=== PATIENT | female | born 1955 | race Native Hawaiian/Other Pacific Islander ===

== ENCOUNTER → 2016-07-06 | Outpatient (CLI) | payer OTHER ==
[~2016-07-06] MED LIST: DELESTROGE10 MG/1 ML IM; ESTRACE0.5 MG PO; LEVOTHYROXINE0.05 MG PO; MULTIVITAMINS; NORCO 5-325 TA1 EACH PO
== END ==
LOC: RAD 14:43
DX: M25.572 Pain in left ankle and joints of left foot (principal)

== ENCOUNTER → 2016-07-08 | Outpatient (CLI) | payer OTHER ==
[~2016-07-08] VITALS: Ht 172.7 cm; Wt 68.0 kg
--- NOTE | ~2016-07-08 | P ---
[facility] [place] [address] [place] [address] PROCEDURE REPORT Name: LISSETTE BOOKER Room #: REG [facility].#: [id number] Admission: 07/08/16 Attend Phys: Remington Booker MD, FAAF Discharge: Date of : 57 Report #: [id number] THIS REPORT FOR: //name// CC: Remington Booker MD DATE OF SERVICE: 07/08/2016 PROCEDURE: Colonoscopy with biopsies. INDICATION FOR PROCEDURE: Evaluate right upper quadrant pain and bilateral lower abdominal pain. DESCRIPTION OF PROCEDURE: Informed consent for this procedure was obtained prior to the administration of any medication. The risks of the procedure which include bleeding, perforation, infection, complications of sedation and the possibility I could miss something have been explained to the patient and she has indicated her consent by signing. Propofol was slowly titrated before and during this procedure for patient comfort by the anesthesia service. The Habbitsinon colonoscope was introduced through the anal sphincter and advanced under direct visualization to the terminal ileum. Findings are noted on withdrawal of the scope. The terminal ileal mucosa appears normal. Cecum, normal mucosa. In the proximal ascending colon, there was a 3 mm sessile polyp removed in toto with regular biopsy forceps and sent to pathology lab. Good hemostasis was noted after that polypectomy. In the mid to distal ascending colon, there is a thickened fold as wide as possibly 1 cm in area. Retroflex view shows the picture of this polyp much better. I did biopsy it multiple times for histopathology and I also injected the area with 3 mL of Fariba ink just in case we need to find it back again for any reason. The remaining ascending colonic mucosa appears normal. Hepatic flexure, normal mucosa. Transverse colon, normal mucosa. Splenic flexure, normal mucosa. Descending colon, normal mucosa. Sigmoid colon, normal mucosa. Rectum, normal mucosa. Retroflex view did not reveal any abnormalities. Scope was withdrawn. The patient went to the recovery area in stable condition. She tolerated the procedure well. IMPRESSION: 1. Colon polyp removed in proximal ascending as above. 2. Thickened folds. Biopsies as above and tattooed as above. Recommendations are to await the path report. I do not think the findings on this colonoscopy or the EGD necessarily explained the patient's discomfort in the right upper quadrant. The etiology of that remains unclear and perhaps CT scan of the abdomen and pelvis needs to be done. I would like for her to take proton pump inhibitors for a while until we get [facility] [address] [place] [address] PROCEDURE REPORT Name: LISSETTE BOOKER Room #: REG [facility] Tyson#: [id number] Admission: 07/08/16 Attend Phys: Remington Booker MD, FAAF Discharge: Date of : 57 Report #: [id number] this pain under control. Thank you very much once again for allowing me to participate in her care, Dr. Booker. <ELECTRONICALLY SIGNED> By: Teresa Camejo DO 07/08/16 1853 1423 1844 Teresa Camejo DO /nt
--- NOTE | ~2016-07-08 | P ---
[facility] [place] [address] [place] [address] PROCEDURE REPORT Name: LISSETTE BOOKER Room #: REG [facility]#: [id number] Admission: 07/08/16 Attend Phys: Remington Booker MD, FAAF Discharge: Date of : 57 Report #: [id number] THIS REPORT FOR: //name// CC: Remington Booker MD DATE OF SERVICE: 07/08/2016 PROCEDURE: EGD with biopsies. INDICATION FOR PROCEDURE: Evaluate right upper quadrant pain. Informed consent for this procedure was obtained prior to the administration of any medication. The risks of the procedure which include bleeding, perforation, infection, complications of sedation and the possibility I could miss something have been explained to the patient and she has indicated her consent by signing. Propofol was slowly titrated before and during this procedure for patient comfort by the anesthesia service. The Buyoon upper videoscope was introduced through the upper esophageal sphincter and advanced under direct visualization to the descending duodenum. Findings are noted on withdrawal of the scope. The duodenal mucosa appears normal throughout its entirety. Pylorus, normal mucosa. Antrum, erythematous mucosa. Body, erythematous mucosa. Biopsies were obtained x 2 from the antrum and body of the stomach for histopathology to evaluate for H. pylori infection. Cardia and fundus, normal mucosa except for a small 3-4 mm polyp that was removed in toto with regular biopsy forceps from the fundus of the stomach and sent to pathology lab. Good hemostasis was noted after that biopsy as well. Retroflex view did not reveal any hiatal hernia. The scope was withdrawn to the esophagus. The Z-line is appropriately located at the top of the gastric folds and appears normal. The esophageal mucosa is erythematous from the distal to the mid section. This may be from acid reflux. The more proximal esophageal mucosa appears normal. The scope was withdrawn. The patient is to return for colonoscopy. IMPRESSION: 1. Distal esophageal erythema. 2. Tiny 3-4 mm polyp in the proximal stomach, removed with biopsy forceps and sent to pathology lab. Good hemostasis was noted after that biopsy. 3. Distal gastric erythema, biopsies for H. pylori pending. RECOMMENDATIONS: To await the path report and we will proceed with colonoscopy at this time. [facility] [address] [place] [address] PROCEDURE REPORT Name: LISSETTE BOOKER Room #: REG [facility] Mauricio#: [id number] Admission: 07/08/16 Attend Phys: Remington Booker MD, FAAF Discharge: Date of : 57 Report #: [id number] Thank you very much once again for allowing me to participate in her care, Dr. Booker. <ELECTRONICALLY SIGNED> By: Teresa Camejo DO 07/08/16 1853 1423 1838 Teresa Camejo DO /nt
--- NOTE | ~2016-07-08 | S ---
[facility] [place] [address] SURGICAL PATH RPT PROCEDURE Name: YESICA BOOKER Room #: REG CL M..#: [id number] Admission: 07/08/16 Date of : 57 Discharge: Report #: [id number] Path Case #: [id number] PATHOLOGY REPORT COLLECTION DATE: 07/08/2016 RECEIVED DATE: 07/10/2016 SUBMITTING PHYS: Dr. Teresa Camejo OTHER PHYS: Dr. Remington Booker SPECIMEN(S) RECEIVED: A.Bx of fundus B.Bx of antrum, body of stomach C.Bx of thickened fold at distal ascending colon D.Polyp at proximal ascending colon polyp * * * * * * * * * * * * FINAL DIAGNOSIS: A. Gastric mucosa, fundus, endoscopic biopsy: - Mild reactive gastropathy; negative for dysplasia or atrophy. - Dilated fundic glands, compatible with a fundic gland polyp in one fragment. - Negative for Helicobacter pylori. B. Gastric mucosa, antrum, endoscopic biopsy: - Mild reactive gastropathy. - Negative for intestinal metaplasia or atrophy. - Negative for Helicobacter pylori. C. Large intestine, thickened fold, endoscopic biopsy: - Hyperplastic polyp. - Negative for dysplasia. D. Polyp, ascending colon polyp, endoscopic biopsy: - Minute tubular adenoma. - Negative for dysplasia. COMMENT: Helicobacter pylori immunohistochemical stain performed on block A1 negative. Helicobacter pylori immunohistochemical stain performed on block B1 negative. (IUV:csd; d/t: 07/13/2016) PATHOLOGIST: Nola Godinez M.D. REPORT ELECTRONICALLY SIGNED BY: Nola Godinez M.D. DATE/TIME: 07/13/2016 15:31 * * * * * * * * * * * * GROSS PATHOLOGY: [facility] [address] [place] [address] SURGICAL PATH RPT PROCEDURE Name: YESICA BOOKER Room #: REG [facility].#: [id number] Admission: 07/08/16 Date of : 57 Discharge: Report #: [id number] Path Case #: [id number] A. Received in formalin labeled "Yesica Booker, biopsies fundus," are three segments of benson soft tissue measuring 0.5 x 0.4 x 0.1 cm in aggregate dimensions and ranging from 0.1 to 0.4 cm in maximum dimension. The specimen is submitted entirely in cassette A1. B. Received in formalin labeled "Yesica Yunox, biopsy of antrum," and additionally labeled on the requisition as, "biopsy of antrum, body of stomach ". Received are two segments of benson soft tissue measuring 0.5 x 0.5 x 0.1 cm in aggregate dimensions and ranging from 0.3 to 0.5 cm in maximum dimension. The specimen is submitted entirely in cassette B1. C. Received in formalin labeled "Yesica Yunox, biopsy of thickened fold," and additionally labeled on the requisition as, "biopsy thickened fold at distal ascending colon". Received are three segments of benson soft tissue measuring 0.6 x 0.6 x 0.1 cm in aggregate dimensions and ranging from 0.2 to 0.6 cm in maximum dimension. The specimen is submitted entirely in cassette C1. D. Received in formalin labeled "Yesica Booker, biopsy proximal ascending colon polyp," is a segment of benson soft tissue measuring 0.3 cm in maximum dimension. The specimen is submitted entirely in cassette D1. (CAA; 07/10/2016) CLINICAL HISTORY: Right quadrant pain, screening B: R/O H. pylori INITIAL CPT CODE(S): A; 61016, 99360 B; 84740, 02117 C; 37236 D; 51748 Professional services performed by [facility] [employer] [place] [address] Technical services performed by [facility] at [address] [place] [address], [address], [place] [address]. [facility] [place] [address] PHONE: [phone] DIRECTOR: Andrew Jewell M.D. * * * END OF REPORT * * *
== END | disposition home or self-care (01) ==
LOC: GI 09:23
DX: D12.2 Benign neoplasm of ascending colon (principal); K63.5 Polyp of colon; K31.7 Polyp of stomach and duodenum; K56.69 Other intestinal obstruction; K20.9 Esophagitis, unspecified; K31.89 Other diseases of stomach and duodenum; Z90.710 Acquired absence of both cervix and uterus
CPT/HCPCS: 62110